=== PATIENT | male | born 1960 | race Caucasian/White ===

== ENCOUNTER 2023-05-22 08:50 | Emergency (ER) | payer OTHER, SELFPAY ==
[2023-05-22] VITALS (69 sets, daily range): BP systolic 117–189; BP diastolic 71–105; PULSE 57–89; RESP 10–24; TEMP 36.2–36.6; O2SAT 94–100
--- NOTE | ~2023-05-22 | CT_ITS ---
EXAMINATION: CTA chest PE protocol DATE: 05/22/2023 10:36 INDICATION: Chest pain and cough TECHNIQUE: Computed tomography angiography (CTA) of the chest was performed with 100 mL Omnipaque-350 intravenous contrast timed to evaluate the pulmonary arteries. Coronal maximum intensity projection 3D-reconstructions were created by the technologist. The dose-length product (DLP) was 232.74 mGy-cm. Automated exposure control and iterative reconstruction technique were employed. COMPARISON: None. FINDINGS: The pulmonary arteries are well-opacified. No pulmonary embolism is identified. There is a 4.4 x 3.4 cm mass of the right lower lobe. There is a 4.7 x 2.3 cm lytic lesion of the left sixth rib which exerts mass effect on the left lung. There is right hilar, subcarinal, and right paratracheal lymphadenopathy. Postobstructive atelectasis is noted in the right lower lobe. There is mild dependen t atelectasis of the left lung. The heart size is normal. There is a 4.2 cm mass of the right adrenal gland. No pulmonary embolus identified. IMPRESSION: 1. 4.4 cm mass of the right lower lobe, consistent with primary bronchogenic carcinoma. 2. Expansile lytic lesion of the left sixth rib, right hilar and mediastinal lymphadenopathy, and rig ht adrenal mass, consistent with metastatic disease. Reviewed, dictated and finalized at location L. [facility] IMPRESSION: 1. 4.4 cm mass of the right lower lobe, consistent with primary bronchogenic ca rcinoma. 2. Expansile lytic lesion of the left sixth rib, right hilar and mediastinal ly mphadenopathy, and right adrenal mass, consistent with metastatic disease.
--- NOTE | ~2023-05-22 | XR_ITS ---
EXAMINATION: XR chest 2V DATE: 05/22/2023 09:05 INDICATION: Cough and chest pain TECHNIQUE: PA and lateral views of the chest are obtained. COMPARISON: None available FINDINGS: There is a 5.7 cm mass of the right lower lobe. There is a pleural-based mass in the left u pper lung zone causing destruction at the posterolateral aspect of the left sixth rib. No pleural eff usion or pneumothorax. The cardiomediastinal silhouette is normal. There are bridging osteophytes at multiple levels in the spine, consistent with diffuse idiopathic skeletal hyperostosis (DISH). IMPRESSION: 1. Lung masses as described above, concerning for primary bronchogenic carcinoma. Further evaluation with CT of the chest is recommended. Reviewed, dictated and finalized at location L. [employer] IMPRESSION: 1. Lung masses as described above, concerning for primary bronchogenic carcinom a. Further evaluation with CT of the chest is recommended.
--- NOTE | 2023-05-22 08:53 | ECG_ITS ---
Measurements Intervals [place] Rate: 80 P: 87 SC: 156 QRS: 61 QRSD: 85 T: 77 QT: 377 QTc: 435 Interpretive Statements SINUS RHYTHM NO PREVIOUS ECG AVAILABLE FOR COMPARISON Electronically Signed On 05-22-2023 12:48:50 [employer] by Skyla Martin M.D.
--- NOTE | 2023-05-22 08:54 | ED.CHESTPAIN ---
HPI - Chest Pain General Chief Complaint: Chest Pain Stated Complaint: chest wall pain Time Seen by Provider: 05/22/23 08:52 Source: patient Mode of arrival: ambulatory Limitations: no limitations History of Present Illness HPI narrative: patient is a 62-year-old male with left-sided chest pain for the past 2 months. It hurts to breathe and move the extremity on the left. MD complaint: chest pain and chest discomfort Onset (ago): month(s) (2) Timing of current episode: constant, daily, stable, increasing and still present Prior episodes: Yes (2 months now) Onset: during rest, during exertion and awoke with symptoms Pain location: substernal, left chest and lateral Pain radiation: none Severity: moderate Pain scale (0-10): 6 Quality: sharp Relieving factors: nothing Exacerbating factors: nothing Treatment prior to arrival: none Risk Factors Coronary artery disease risk factors: smoking history and hypertension Thoracic aortic dissection risk factors: longstanding hypertension Pulmonary embolism risk factors: malignancy ( Found today on chest x-ray with further workup planning) Related Data Home Medications Medication Instructions Recorded Confirmed losartan 50 mg tablet 50 mg PO DAILY 05/22/23 05/22/23 Allergies Allergy/AdvReac Type Severity Reaction Status Date / Time No Known Allergies Allergy Verified 05/22/23 09:05 Review of Systems Review of Systems: All systems reviewed & are unremarkable except as noted in HPI and below Constitutional: Constitutional: Reports no additional constitutional complaints Eyes: Eyes: Reports no additional eye complaints ENT: Reports system reviewed and no additional complaints, except as documented Cardiovascular: Cardiovascular: Reports no additional cardiovascular complaints Respiratory: Respiratory: Reports no additional respiratory complaints Gastrointestinal: Gastrointestinal: Reports no additional gastrointestinal complaints Genitourinary: Genitourinary: Reports no additional male genitourinary complaints Musculoskeletal: Musculoskeletal: Reports no additional musculoskeletal complaints Integumentary/Breasts: Skin/Breast: Reports system reviewed and no additional complaints, except as docu Neurologic: Reports system reviewed and no additional complaints, except as documented Psychiatric: Psychiatric: Reports no additional psychiatric complaints Endocrine: Endocrine: Reports no additional endocrine complaints Hematologic/Lymphatic: Hematologic/Lymphatic: Reports no additional hematologic/lymphatic complaints Allergic/Immunologic: Allergic/Immunologic: Reports no additional allergic/immunologic complaints Exam Const: General: healthy appearing Nutritional Appearance: well nourished Orientation/consciousness: patient oriented x3 HENMT: Head: normal to inspection Ears: external ears normal Face/Nose/Sinus: Normal external nose present Eyes: Conjunctivae: conjunctivae normal Pupils: Equal, round and reactive pupils present EOM: EOMs intact bilaterally Neck: Neck: normal visual inspection Chest: Chest palpation & inspection: normal inspection of the chest Other: tender left costochondral margins and ribs to palpation Resp: Effort & Inspection: normal respiratory effort and not labored Auscultation: clear to auscultation bilaterally and no crackles Cardio: Rate: regular rate Rhythm: regular rhythm Heart sounds: no murmurs GI: Inspection: non-distended Auscultation: normal bowel sounds : General: Yes bladder normal to palpation Back/Spine/Pelvis: Back: no CVA tenderness Skin: General skin exam: normal color Rashes: no rashes Wounds: no wounds Neuro: General: patient oriented x3 Cranial nerves: Yes Nystagmus not present Speech: normal speech Extrem: General: normal to inspection Psych: Mental Status: mental status grossly normal Affect: normal affect Attitude: cooperative Course Vital Signs Vital signs: Vital Signs
[2023-05-22 09:24] LABS: Basophils Absolute Auto 0.03 K/mm3 (0.00-0.10); Basophils Percent Auto 0.3 % (0.0-1.0); Eosinophils Absolute Auto 0.27 K/mm3 (0.02-0.50); Eosinophils Percent Auto 2.3 % (1.0-6.0); Hematocrit 49.6 % (40.0-54.0); Hemoglobin 16.2 g/dL (14.0-18.0); Immature Granulocyte Absolute 0.03 K/mm3 (0.00-0.00); Immature Granulocyte Percent A 0.3 % (0.0-0.0); Lymphocytes Absolute Auto 1.45 K/mm3 (1.10-4.50); Lymphocytes Percent Auto 12.6 % (18.0-42.0); Mean Corpuscular HGB Conc 32.7 g/dL (32.0-36.0); Mean Corpuscular Hemoglobin 30.5 pg (27.0-31.0); Mean Corpuscular Volume 93.2 fL (78.0-102.0); Mean Platelet Volume 9.9 fl (8.7-11.0); Monocytes Absolute Auto 0.71 K/mm3 (0.10-0.90); Monocytes Percent Auto 6.2 % (2.0-11.0); Neutrophils Percent Auto 78.3 % (50.0-70.0); Platelet Count Result 256 K/mm3 (150-420); Red Blood Count 5.32 M/mm3 (4.70-6.10); White Blood Count 11.5 K/mm3 (4.8-10.8)
[2023-05-22 09:45] LABS: Alanine Aminotransferase 32 U/L (16-63); Albumin Level 3.8 g/dL (3.4-5.0); Alkaline Phosphatase 173 U/L (46-116); Anion Gap 11 mmol/L (8-16); Aspartate Amino Transferase 19 U/L (15-37); Bilirubin,Total 0.5 mg/dL (0.00-1.00); Blood Urea Nitrogen 14 mg/dL (7-18); Calcium 9.3 mg/dL (8.5-10.1); Carbon Dioxide 27 mmol/L (21-32); Chloride 101 mmol/L (98-108); Estimated Glomerular Filt Rate > 60; Glucose 124 mg/dL (70-99); Lipase 20 U/L (16-77); Osmolality Calculated 289 mOsm/kg (285-295); Potassium 4.1 mmol/L (3.5-5.1); Sodium 139 mmol/L (136-145); Total Protein 8.1 g/dL (6.4-8.2)
[2023-05-22 09:47] LABS: Troponin I < 4.0 ng/L (0.00-60.4)
[2023-05-22 09:52] LABS: D Dimer 1.37 mg/L (0.19-0.50)
--- NOTE | 2023-05-22 09:52 | PC.NURSE ---
lab reports elevated Ddimer 1.37, erp made aware
[2023-05-22] MEDS: HYDROcodone/acetaminophen (*CRX) 5-325 MG TABLET 1 TAB PO ×2 (14:01→17:37)
[2023-05-22 17:20] LABS: Troponin I < 4.0 ng/L (0.00-60.4)
--- NOTE | 2023-05-22 18:30 | PC.NURSE ---
On 05/22/23, the student, Zenia Foster, provided care and completed [facility] documentation on this patient. I have reviewed the student's documentation and agree with the findings.
== END 2023-05-22 20:11 | disposition short-term general hospital (02) ==
PROVIDERS: Emergency Provider Emergency Medicine; PCP Family Medicine
DX: C34.91 Malignant neoplasm of unspecified part of right bronchus or lung (principal); R07.9 Chest pain, unspecified; Z79.899 Other long term (current) drug therapy
CPT/HCPCS: 36415; 71046; 71275; 80053; 83690; 84484; 85025; 85380; 93005; 99285; A9270; Q9967